=== PATIENT | female | born 1950 | race Caucasian/White ===

== ENCOUNTER 2019-05-18 21:58 | Emergency (ER) | payer OTHER ==
[2019-05-18 22:07] VITALS: TEMP 98.2; BMI 32.5
[2019-05-18] MEDS ORDERED: SODIUM CHLORIDE 1,000 ML IV STA (23:56)
[2019-05-18] MEDS ORDERED: ACETAMINOPHEN 1000 MG/100 ML VIAL (NON FORMULARY) IVPB ONE (23:56)
--- NOTE | 2019-05-19 00:41 | PDOC ---
History of Present Illness - General Chief Complaint: Chest Pain Stated Complaint: CHEST PAIN Time Seen by Provider: 05/18/19 23:47 History Source: Patient, Family - History of Present Illness Initial Comments: 05/19/19 00:24 Patient is a 68F with history of HTN and aortic aneurysm (no operations, watching) here today complaining of chest pain. Patient had surgery yesterday to remove lipoma from arm under general anesthesia. Patient describes the pain as right sided passing through her back to her chest. Denies fevers, chills, nausea, vomiting. Denies shortness of breath. Pain is worsened with palpation of chest. Denies history of cardiac problems, DM, CHF, etc. Has not taken any medication for pain. No leg pain or swelling. Past History - Past Medical History Allergies/Adverse Reactions: Allergies Allergy/AdvReac Type Severity Reaction Status Date / Time No Known Allergies Allergy Verified 05/19/19 00:17 COPD: No - Suicide/Smoking/Psychosocial Hx Smoking History: Unknown if ever smoked Have you smoked in the past 12 months: No Information on smoking cessation initiated: No Hx Alcohol Use: No Drug/Substance Use Hx: No Review of Systems - Review of Systems Able to Perform ROS?: Yes Comments:: 05/19/19 00:27 GENERAL/CONSTITUTIONAL: No fever or chills. No weakness. HEAD, EYES, EARS, NOSE AND THROAT: No change in vision. No sore throat. CARDIOVASCULAR: +chest pain no shortness of breath RESPIRATORY: No cough, wheezing, or hemoptysis. GASTROINTESTINAL: No nausea, vomiting, diarrhea or constipation. GENITOURINARY: No dysuria, frequency, or change in urination. MUSCULOSKELETAL: No joint or muscle swelling or pain. No neck pain. SKIN: No rash NEUROLOGIC: No headache, vertigo, loss of consciousness, or change in strength/ sensation. ENDOCRINE: No increased thirst. No abnormal weight change HEMATOLOGIC/LYMPHATIC: No anemia, easy bleeding, or history of blood clots. ALLERGIC/IMMUNOLOGIC: No hives or skin allergy. *Physical Exam - Vital Signs Last Vital Signs Temp Pulse Resp BP Pulse Ox 98.2 F 66 16 161/78 100 05/18/19 22:05 05/18/19 22:05 05/18/19 22:05 05/18/19 22:05 05/18/19 22:05 - Physical Exam Comments: 05/19/19 00:28 GENERAL: Awake, alert, and fully oriented, in no acute distress HEAD: No signs of trauma, normocephalic, atraumatic EYES: PERRLA, EOMI, sclera anicteric, conjunctiva clear ENT: Auricles normal inspection, hearing grossly normal, nares patent, oropharynx clear without exudates. Moist mucosa NECK: Normal ROM, supple, no lymphadenopathy, JVD, or masses LUNGS: No distress, speaks full sentences, clear to auscultation bilaterally. Pain along sternum with chest pain. HEART: Regular rate and rhythm, normal S1 and S2, no murmurs, rubs or gallops, peripheral pulses normal and equal bilaterally. ABDOMEN: Soft, nontender, normoactive bowel sounds. No guarding, no rebound. No masses EXTREMITIES: Normal inspection, Normal range of motion, no edema. No clubbing or cyanosis. NEUROLOGICAL: Cranial nerves II through XII grossly intact. Normal speech, no focal sensorimotor deficits SKIN: Warm, Dry, normal turgor, no rashes or lesions noted. ED Treatment Course - LABORATORY CBC & Chemistry Diagram: 05/19/19 00:30 05/19/19 00:30 - RADIOLOGY Radiology Studies Ordered: Category Date Time Status ABDOMEN CTA W/WO CONTRAST [CT] Stat CT Scan 05/18/19 23:59 Ordered CHEST CTA [CT] Stat CT Scan 05/18/19 23:56 Ordered CHEST PA & LAT [RAD] Stat Radiology 05/18/19 23:55 Ordered Medical Decision Making - Medical Decision Making 05/19/19 00:28 Patient is 68F with history of recent surgery, aortic aneurysm here today with atypical chest pain. Vitals normal and stable. DDx includes, but is not limited to: pe, msk pain, acs, dissection. Will workup with cardiac labs, CTA. EKG shows NSR with rate of 66. No st elevations/depressions. Normal axis. Normal intervals. Q waves in V2, V3. No significant t wave abnormalities. 05/19/19 01:59 CBC normal. CMP normal. Trop negative. CTA pending. 05/19/19 04:07 CTA shows aortic dissection at kidney and bifurcation. Patient is stable with good pulses bilaterally. [facility] contacted, transfer accepted by Dr Lewis. Formal translation used for explanation of results and transfer consent. *DC/Admit/Observation/Transfer Diagnosis at time of Disposition: Aortic dissection - Discharge Dispostion Disposition: TRANSFER ACUTE CARE/OTHER HOSP Condition at time of disposition: Stable - Referrals - Patient Instructions - Post Discharge Activity - Transfer to Acute Care Facility Receiving Facility: [facility]. Accepting Physician:: Debbie
[2019-05-19 00:56] LABS: HEMOGLOBIN 13.6 GM/dL (10.7-15.3); RDW 15.7 % (11.6-15.6)
[2019-05-19 01:12] LABS: INR 1.03 (0.83-1.09); PROTHROMBIN TIME (PATIENT) 12.1 SEC (9.7-13.0)
[2019-05-19 01:17] LABS: BASO % 0.3 % (0-2.0); EOS % 1.7 % (0-4.5); HEMATOCRIT 41.6 % (32.4-45.2); LYMPH % 33.9 % (8-40); MCH 28.5 pg (25.7-33.7); MCHC 32.8 g/dl (32.0-36.0); MEAN CELL VOLUME 86.9 fl (80-96); MEAN PLT VOLUME 9.6 fl (7.5-11.1); MONO % 9.9 % (3.8-10.2); NEUT % 54.2 % (42.8-82.8); PLATELET COUNT 269 K/MM3 (134-434); RBC 4.78 M/mm3 (3.60-5.2); WHITE BLOOD COUNT 9.6 K/mm3 (4.0-10.0)
[2019-05-19 01:26] LABS: ALBUMIN 3.7 g/dl (3.4-5.0); ALK PHOS 109 U/L (45-117); ANION GAP 7 MMOL/L (8-16); BILIRUBIN,TOTAL 0.4 mg/dL (0.2-1); BLOOD UREA NITROGEN 19.1 mg/dL (7-18); CHLORIDE 108 mmol/L (98-107); CO2 29 mmol/L (21-32); CREATININE 0.9 mg/dL (0.55-1.3); GLUCOSE,RANDOM 92 mg/dL (74-106); SGOT/AST 13 U/L (15-37); SGPT/ALT 20 U/L (13-61); SODIUM 145 mmol/L (136-145); TOT PROT 7.1 g/dl (6.4-8.2)
[2019-05-19 01:32] VITALS: PULSE 65
[2019-05-19] MEDS ORDERED: methylPREDNISolone NA SUCC 125 MG/2 ML VIAL IVPB ONE (03:13)
[2019-05-19] MEDS ORDERED: FAMOTIDINE 20 MG/50 ML IVPB 20 MG/50 ML MG IVPB ONE ×2 (03:13→03:51)
[2019-05-19] MEDS ORDERED: methylPREDNISolone NA SUCC 125 MG/2 ML VIAL ONE (03:50)
--- NOTE | 2019-05-19 04:04 | PDOC ---
Documentation entered by Anupama Aponte SCRIBE, acting as scribe for Effie Gilliland DO. Effie Gilliland DO: This documentation has been prepared by the Fadi henriquez Brenda, SCRIBE, under my direction and personally reviewed by me in its entirety. I confirm that the documentation accurately reflects all work , treatment, procedures, and medical decision making performed by me. Attending Attestation - Resident Resident Name: Justin Mello - ED Attending Attestation I have performed the following: I have examined & evaluated the patient, The case was reviewed & discussed with the resident, I agree w/resident's findings & plan, Exceptions are as noted - HPI HPI: 05/19/19 01:48 The patient is a 68 year old female, with a significant PMH of HTN and aortic aneurysm (no operations, watching) who presents to the emergency department with chest pain, which she describes as right sided and coming from her back into her chest, aggravated by palpation of the chest. Patients reports undergoing surgery yesterday to remove a lipoma from her arm (general anesthesia ). The patient denies any medical intervention. Denies any history of cardiac issues. Denies shortness of breath, headache and dizziness. Denies fever, chills , nausea, vomiting, diarrhea and constipation. Denies dysuria, frequency, urgency and hematuria.Denies any other symptoms. Allergies: NKA Past surgical history: unknown surgery for removal of lipoma Social history: Not reported - Physicial Exam PE: 05/19/19 00:27 Agree with resident's exam. - Medical Decision Making 05/19/19 03:59 68-year-old female with right flank pain CTA of the chest abdomen and pelvis was consistent with lower aortic dissections times to, distal most extending into the right iliac artery Vascular on-call unavailable for this facility today Call placed to vascular surgery at [facility] who has accepted the patient for transfer to the emergency department sexual translation services provided to the patient to advise her of the plan
[2019-05-19 05:19] VITALS: BP 159/74
--- NOTE | 2019-05-19 13:30 | EKG ---
Test Reason : Blood Pressure : / mmHG Vent. Rate : 066 BPM Atrial Rate : 066 BPM P-R Int : 208 ms QRS Dur : 088 ms QT Int : 392 ms P-R-T Axes : 034 -02 -25 degrees QTc Int : 410 ms NORMAL SINUS RHYTHM SEPTAL INFARCT , AGE UNDETERMINED ABNORMAL ECG NO PREVIOUS ECGS AVAILABLE Confirmed by CLAY MENDOZA MD ([id number]) on 05/19/2019 1:30:31 PM Referred By: Confirmed By:CLAY MENDOZA MD
== END 2019-05-19 05:36 | disposition short-term general hospital (02) ==
LOC: JER 21:58
PROC: 3E033GC Introduction of Other Therapeutic Substance into Peripheral Vein, Percutaneous Approach (ICD-10-PCS; principal; 2019-05-18)
PROC: 3E033GC Introduction of Other Therapeutic Substance into Peripheral Vein, Percutaneous Approach (ICD-10-PCS; 2019-05-18)
PROC: 3E0333Z Introduction of Anti-inflammatory into Peripheral Vein, Percutaneous Approach (ICD-10-PCS; 2019-05-18)
PROC: 3E033NZ Introduction of Analgesics, Hypnotics, Sedatives into Peripheral Vein, Percutaneous Approach (ICD-10-PCS; 2019-05-18)
DX: I71.00 Dissection of unspecified site of aorta (principal); Z98.890 Other specified postprocedural states
CPT/HCPCS: 36415; 71275-TC; 74175-TC; 80053; 82550; 83735; 84484; 85025; 85610; 93005; 93010; 99285-25; J0131; J7030